=== PATIENT | female | born 1960 | race Caucasian/White ===

== ENCOUNTER → 2017-05-05 | Outpatient (CLI) | payer MEDICAID ==
[~2017-05-05] MED LIST: ALEVE220 M1 PO; RESPIMAT INH; TUMS REGULAR ST1 TAB PO; VITAMIN D50000 UNIT PO
== END | disposition disaster alternative care site (69) ==
LOC: GRAD 08:31
DX: D35.00 Benign neoplasm of unspecified adrenal gland (principal); K80.20 Calculus of gallbladder without cholecystitis without obstruction